=== PATIENT | female | born 1990 | race Caucasian/White ===

== ENCOUNTER 2017-04-02 22:15 | Emergency (ER) | payer OTHER ==
[~2017-04-02] VITALS: Ht 177.8 cm; Wt 70.9 kg
[2017-04-02 22:22] VITALS: BP 142/91; PULSE 95; RESP 16; O2SAT 100
[2017-04-03 00:08] LABS: BASOPHILS % (AUTO) 0.1 % (0-3); EOSINOPHILS % (AUTO) 0.2 % (0-5); MONOCYTES % (AUTO) 10.1 % (4-12); Mean Corpuscular Hemoglobin 28.7 pg (27.0-35.0); Mean Corpuscular Volume 84.2 fL (81-100); NEUTROPHILS % (AUTO) 76.1 % (40-74); Platelet Count 180 bil/L (150-400)
--- NOTE | 2017-04-03 00:17 | ED.REPORT ---
HPI-Abd Pain F Under 39 Date of Service April 03, 2017 ED Provider: Dr. Aparicio 27 year old female with a history of chronic kidney infections and Congenital absence of the L kidney who presents to the ER due to R sided abd pain for a few days. Pain worse with deep inspiration. Associated sx include nausea. Pt was seen last night at [facility] where she was admitted for pyelonephritis. She left AMA due to issues at home. Pt denies dysuria, bowel changes, vaginal discharge and . She had a D&C 03/19/17. Pt denies EtOH or drug use. Records from [facility] in [place]: UA last night at [facility] showed pyuria and bacteruria. Urine culture sent. CT findings are present and suspicious for right sided UTI/focal pyelonephritis. Ceftriaxone 2mg IV. Admitted to floor and left AMA. Quantitative hCG 307.1 PCP [facility] Nursing Notes Stated Complaint: ABDOMINAL PAIN Chief Complaint: Female Abdominal Pain Nursing Notes Reviewed: Yes Allergies: Coded Allergies: No Known Allergies (Unverified , 04/02/17) Scheduled Cephalexin (Cephalexin) 500 Mg Capsule 500 MG PO QID General Time Seen by MD: 00:16 Chief Complaint Abdominal pain Hx Obtained From: Patient Arrived By: Walk-in Sudden in Onset?: No Onset Occurred: 2 days ago Symptom Duration: Since onset Quality: Painful Severity: Current: Moderate Associated with: Reports: Nausea, Denies: Vomiting Recent Healthcare: Recent doctor visit Similar Sx Previous: Yes Past Medical History Past Medical History Congenital absence of the L kidney Recurrent pyelonephritis CKD nephrolithiasis Varicella as child Past Surgical History D&C Reports: (x2 + LEEP procedure) Review of Systems Basic Review of Systems Eyes: Vision NL, No discharge ENT: Hearing NL, No pain, No nasal congestion, No pharyngeal pain GI: Reports: Abdominal pain, Nausea, Denies: Constipation, Diarrhea, Vomiting Female: Denies: Dysuria, , Vaginal bleeding - abnl, Vaginal discharge Complete sys rev & neg: except as marked. Physical Exam Initial Vital Signs Vital Signs (First) Date Time Temp Pulse Resp B/P Pulse Ox O2 Delivery O2 Flow Rate FiO2 04/02/17 22:22 37.4 95 16 142/91 100 Room Air Initial VS: Reviewed Head / Eyes: Atraumatic, Normocephalic, PERRL ENT: Mucous membranes moist, Conjunctiva normal, No scleral icterus Neck: Full range of motion Extremities: Vascular intact, Neuro intact, No swelling, No tenderness Skin: Warm, Dry, No cyanosis Neurologic: Alert, Oriented General/Constitutional: Awake, Alert Respiratory / Chest: Breath sounds NL, Breath sounds = bilat, No respiratory distress, No rales, No rhonchi, No wheezing Cardiovascular: Regular rhythm, Heart sounds NL, No gallop, No murmurs, No rubs , Peripheral circulation NL Heart Rate / Rhythm: Positive: Tachycardia (borderline) Abdomen: Soft, Non-tender, BS normoactive Back: Full range of motion CVAT R Interpretation & Diagnostics Lab Results Interpretation Result Diagram: 04/02/17 2358 04/02/17 2358 Test 04/02/17 22:55 04/02/17 23:30 04/02/17 23:55 04/02/17 23:58 Urine Color Yellow (YELLOW) Urine Appearance Clear (CLEAR,HAZY) Urine pH 5.5 (5.0-8.0) Urine Specific [place] 1.017 (1.003-1.035) Urine Protein Tracemg/dL (NEG,TRACE) Urine Glucose (UA) Negativemg/dL (NEGATIVE) Urine Ketones Negativemg/dL (NEGATIVE) Urine Occult Blood Large (NEGATIVE) Urine Nitrite Negative (NEGATIVE) Urine Bilirubin Negative (NEGATIVE) Urine Urobilinogen Normalmg/dL (NORMAL) Urine Leukocyte Esterase Negative (NEGATIVE) Urine RBC >50/hpf (0-2) Urine WBC 6-10/hpf (0-5) Urine Epithelial Cells Many/hpf (NONE-MOD) Urine Crystals None seen (NONE SEEN) Urine Bacteria None/hpf (NONE-FEW) Urine Hyaline Casts None/lpf (NONE) Urine Granular Casts None seen (NONE SEEN) Urine Waxy Casts None seen (NONE SEEN) Urine Red Blood Cell Casts None seen (NONE SEEN) Urine White Blood Cell Casts None seen (NONE SEEN) Urine Mucus None seen (None Seen) Urine Trichomonas None seen (NONE SEEN) Urine Yeast None (NONE SEEN) Urinalysis Comment Urine Culture Reflexed Indicated HCG Beta Subunit 124.5mIU/mL Lactic Acid Level 0.7mmol/L (0.4-2.0) Hold Sun Top Tube Received (Received) White Blood Count 8.3th/mm3 (3.8-10.1) Red Blood Count 3.49mil/mm3 (3.90-5.20) Hemoglobin 10.0g/dL (12.0-15.6) Hematocrit 29.4% (35.0-46.0) Mean Corpuscular Volume 84.2fL (81-100) Mean Corpuscular Hemoglobin 28.7pg (27.0-35.0) Mean Corpuscular Hemoglobin Concent 34.0% (32.0-37.0) Red Cell Distribution Width 12.8% (12.3-15.4) Platelet Count 180bil/L (150-400) Neutrophils (%) (Auto) 76.1% (40-74) Lymphocytes (%) (Auto) 13.3% (14-46) Monocytes (%) (Auto) 10.1% (4-12) Eosinophils (%) (Auto) 0.2% (0-5) Basophils (%) (Auto) 0.1% (0-3) Sodium Level 134mEq/L (134-144) Potassium Level 3.9mEq/L (3.5-5.2) Chloride Level 99mEq/L (97-108) Carbon Dioxide Level 21mmol/L (18-29) Blood Urea Nitrogen 8mg/dL (6-20) Creatinine 0.66mg/dL (0.57-1.00) Estimat Glomerular Filtration Rate 153mL/min (>59) Glucose Level 110mg/dL (60-99) Calcium Level 9.4mg/dL (8.5-10.1) Magnesium Level 2.0mg/dL (1.6-2.6) Total Bilirubin 0.2mg/dL (0.0-1.2) Aspartate Amino Transf (AST/SGOT) 34U/L (0-50) Alanine Aminotransferase (ALT/SGPT) 34U/L (0-32) Alkaline Phosphatase 122U/L (25-150) Total Protein 7.0g/dL (6.4-8.4) Albumin 3.6g/dL (3.4-5.0) Lipase 18U/L (13-60) General Lab Results Interp 1: Labs reviewed Re-Eval/Medical Decision Source of Hx: Old records Re-Evaluation/Progress : Time of Eval: 01:00 Re-Evaluation/Progress Note: Discussed plan for discharge and follow up. All questions addressed. Counseled Regarding: Diagnosis, Lab results, Need for follow-up, When/why to return to ED Discharge & Departure Primary Impression: Pyelonephritis Disposition: Home Discharge Condition All VS Reviewed: Yes Condition: Stable Additional Instructions: Emergency Department evaluation included interview, examination, review of ED visit from outside hospital last night, labs. We gave IV fluids, pain medications and IV antibiotics. The antibiotics given (Rocephin) will cover U for 24 hours. Our evaluation is consistent with last night's evaluation in finding a right-sided kidney infection. Tonight it does not appear that admission to the hospitalist necessary. Starting tomorrow take cephalexin 500 mg 4 times a day. Hydrocodone as needed for pain and ondansetron as needed for nausea. Rest and get adequate fluids. Plan to follow up with primary care in about 3-5 days. Return to emergency department for shaking chills fevers increasing pain uncontrolled vomiting. Referrals: NOPCP (PCP) Scribe Attestation Portions of this note were transcribed by Aracelis Molina. I, (Dr. Aparicio) personally performed the history, physical exam and medical decision-making; I reviewed and confirmed the accuracy of the information in the transcribed note. Signed by: Aracelis Molina. [place], 04/03/2017, 0151 Miguel Aparicio MD April 03, 2017 00:17 Aracelis Molina April 03, 2017 00:23
[2017-04-03 00:25] LABS: APPEARANCE,URINE CLEAR (CLEAR,HAZY); COLOR,URINE YELLOW (YELLOW); OCCULT BLOOD,URINE LARGE (NEGATIVE); PH,URINE 5.5 (5.0-8.0); UROBILINOGEN,URINE NORMAL (NORMAL)
[2017-04-03] MEDS ORDERED: 0.9% Sodium Chloride 1,000 ML IV ONE ×2 (00:30)
[2017-04-03] MEDS ORDERED: Ondansetron 2 mg/mL 2 mL Inj IVPUSH PRN (00:30)
[2017-04-03] MEDS ORDERED: cefTRIAXone Inj 2,000 MG in Dextrose 5% Minibag Plus 50 ML IV ONE (00:30)
[2017-04-03] MEDS ORDERED: HYDROmorphone 0.5 mg/0.5 mL iSecure Syringe IVPUSH PRN (00:30)
[2017-04-03] MEDS ORDERED: _Ondansetron ODT 4 mg Tablet PO PRN (01:20)
[2017-04-03] MEDS ORDERED: _HYDROcodone/APAP 5-325 mg Tablet PO PRN (01:20)
[2017-04-03] MEDS ORDERED: CEPH500C PO (01:23)
[2017-04-03 02:18] VITALS: BP 136/86; PULSE 90; RESP 16; O2SAT 100
== END 2017-04-03 02:20 | disposition home or self-care (01) ==
LOC: SED 22:15
DX: N10 Acute pyelonephritis (principal); R11.0 Nausea; N18.9 Chronic kidney disease, unspecified; Q60.0 Renal agenesis, unilateral
CPT/HCPCS: 36415; 80053; 81000; 81025; 83605; 83690; 83735; 84702; 85025; 87040; 87086; 87088; 96361; 96365; 96375; 99284; J0696; J1170; J2405; J7030